=== PATIENT | male | born 1995 | race African-American/Black ===

== ENCOUNTER 2018-04-04 07:49 | Emergency (ER) | payer MEDICAID ==
[~2018-04-04] VITALS: Ht 165.1 cm; Wt 86.2 kg
[2018-04-04 09:11] VITALS: BP 137/75
== END 2018-04-04 10:28 | disposition home or self-care (01) ==
LOC: ER 07:49
DX: J03.90 Acute tonsillitis, unspecified (principal); H61.23 Impacted cerumen, bilateral; R51 Headache

== ENCOUNTER 2021-04-20 17:32 | Emergency (ER) | payer MEDICAID ==
[~2021-04-20] VITALS: Ht 165.1 cm; Wt 81.6 kg
[2021-04-20 17:53] VITALS: BP 124/82
== END 2021-04-21 01:46 | disposition left against medical advice (07) ==
LOC: ER 17:32
DX: M54.2 Cervicalgia (principal); Z53.21 Procedure and treatment not carried out due to patient leaving prior to being seen by health care provider